=== PATIENT | male | born 1975 | race American Indian/Alaskan Native ===

== ENCOUNTER → 2025-02-16 | Outpatient (CLI) | payer MEDICAID, SELFPAY ==
--- NOTE | 2025-02-16 06:23 | EKG_ITS ---
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
[2025-02-16 07:43] VITALS: BMI 28.1
[2025-02-16 08:11] LABS: Collection Type, Urine Clean Catch; Squamous Epithelial Cell,Urine 0 /hpf (0-5); WBC,Urine 0 /hpf (0-5)
[2025-02-16 09:02] LABS: Anion Gap 9 (7-16); BUN/Creatinine Ratio 13 Ratio (12-20); Blood Urea Nitrogen 10 mg/dL (9-23); Calcium 9.5 mg/dL (8.3-10.6); Carbon Dioxide 27.7 mMol/L (20.0-31.0); Chloride 104 mMol/L (98-107); Creatinine (Component) 0.8 mg/dL (0.6-1.3); Estimated Creatinine Clearance 105.4 mL/min (>60); Glucose 112 mg/dL (74-106); Osmolality,Calculated 281 (275-295); Potassium 4.3 mMol/L (3.4-5.1); Sodium 141 mMol/L (136-145); eGFR > 60 See Note
[2025-02-16 09:05] LABS: Amorphous Crystals,Urine Present (Absent); Bacteria,Urine Rare; Bilirubin,Urine Negative (Negative); Blood,Urine Negative (Negative); Color,Urine Lt-Yellow (Lt Yel-Yel); Glucose, Urine Negative (Negative); Ketones,Urine Negative (Negative); Leukocyte Esterase,Urine Negative (Negative); Nitrite,Urine Negative (Negative); PH,Urine 8.0 (5.0-7.0); Protein,Urine Negative (Neg - Trace); RBC,Urine 1 /hpf (0-3); Specific Gravity,Urine 1.022 (1.001-1.035); Urobilinogen,Urine Negative mg/dL (0.0-1.0)
[2025-02-16 09:21] LABS: Clarity,Urine Hazy (Clear/Hazy)
[2025-02-16 13:56] LABS: Basophils # (Auto) 0.1 Thou/mm3 (0.0-0.2); Basophils % (Auto) 1 % (0-2.5); Eosinophils # (Auto) 0.3 Thou/mm3 (0.0-0.5); Eosinophils % (Auto) 4 % (0-10); Hematocrit 44.1 % (41.0-53.0); Hemoglobin 14.4 g/dL (13.5-16.0); Immature Granulocytes Auto 0.01 Thou/mm3 (0.00-0.00); Lymphocytes # (Auto) 2.6 Thou/mm3 (1.0-4.8); Lymphocytes % (Auto) 36 % (10-50); Mean Corpuscular HGB Conc 32.7 g/dl (31.0-37.0); Mean Corpuscular Hemoglobin 29.5 pg (25.0-35.0); Mean Corpuscular Volume 90 fL (80-100); Monocytes # (Auto) 0.5 Thou/mm3 (0.0-0.8); Monocytes % (Auto) 7 % (0-12); Neutrophils # (Auto) 3.7 Thou/mm3 (1.8-7.7); Neutrophils % (Auto) 52 % (37-80); Nucleated Red Blood Cell # 0.00 Thou/mm3 (0.00-0.00); Nucleated Red Blood Cell % 0 /100 WBC (0); Platelet Count 221 Thou/mm3 (140-440); RDW Standard Deviation 43.7 fL (35.1-43.9); Red Blood Count 4.88 Miln/mm3 (4.50-5.90); White Blood Count 7.2 Thou/mm3 (3.8-10.6)
== END | disposition home or self-care (01) ==
LOC: SLAB 02-24 08:09
PROVIDERS: PCP Family Medicine; Referring Provider Surgery; Visit Provider Surgery
DX: N43.40 Spermatocele of epididymis, unspecified (principal)
CPT/HCPCS: 36415; 80048; 81001; 85025; 93005

== ENCOUNTER 2025-03-25 08:20 | Day surgery (SDC) | payer MEDICAID, SELFPAY ==
[2025-03-23 11:58] VITALS: BMI 29.5
[2025-03-23 12:18] LABS: Collection Type, Urine Clean Catch; Squamous Epithelial Cell,Urine 0 /hpf (0-5); WBC,Urine 0 /hpf (0-5)
[2025-03-23 13:25] LABS: Basophils # (Auto) 0.1 Thou/mm3 (0.0-0.2); Basophils % (Auto) 1 % (0-2.5); Eosinophils # (Auto) 0.3 Thou/mm3 (0.0-0.5); Eosinophils % (Auto) 4 % (0-10); Hematocrit 44.7 % (41.0-53.0); Hemoglobin 14.7 g/dL (13.5-16.0); Immature Granulocytes Auto 0.02 Thou/mm3 (0.00-0.00); Lymphocytes # (Auto) 2.5 Thou/mm3 (1.0-4.8); Lymphocytes % (Auto) 35 % (10-50); Mean Corpuscular HGB Conc 32.9 g/dl (31.0-37.0); Mean Corpuscular Hemoglobin 29.5 pg (25.0-35.0); Mean Corpuscular Volume 90 fL (80-100); Monocytes # (Auto) 0.5 Thou/mm3 (0.0-0.8); Monocytes % (Auto) 7 % (0-12); Neutrophils # (Auto) 3.9 Thou/mm3 (1.8-7.7); Neutrophils % (Auto) 53 % (37-80); Nucleated Red Blood Cell # 0.00 Thou/mm3 (0.00-0.00); Nucleated Red Blood Cell % 0 /100 WBC (0); Platelet Count 235 Thou/mm3 (140-440); RDW Standard Deviation 43.2 fL (35.1-43.9); Red Blood Count 4.98 Miln/mm3 (4.50-5.90); White Blood Count 7.3 Thou/mm3 (3.8-10.6)
[2025-03-23 13:28] LABS: Bilirubin,Urine Negative (Negative); Blood,Urine Negative (Negative); Clarity,Urine Turbid (Clear/Hazy); Color,Urine Yellow (Lt Yel-Yel); Glucose, Urine Negative (Negative); Ketones,Urine Negative (Negative); Leukocyte Esterase,Urine Negative (Negative); Nitrite,Urine Negative (Negative); PH,Urine 8.0 (5.0-7.0); Protein,Urine Negative (Neg - Trace); RBC,Urine 5 /hpf (0-3); Specific Gravity,Urine 1.022 (1.001-1.035); Urobilinogen,Urine Negative mg/dL (0.0-1.0)
[2025-03-23 13:33] LABS: Anion Gap 9 (7-16); BUN/Creatinine Ratio 15 Ratio (12-20); Blood Urea Nitrogen 12 mg/dL (9-23); Calcium 9.8 mg/dL (8.3-10.6); Carbon Dioxide 27.8 mMol/L (20.0-31.0); Chloride 104 mMol/L (98-107); Creatinine (Component) 0.8 mg/dL (0.6-1.3); Estimated Creatinine Clearance 104.0 mL/min (>60); Glucose 85 mg/dL (74-106); Osmolality,Calculated 279 (275-295); Potassium 4.1 mMol/L (3.4-5.1); Sodium 141 mMol/L (136-145); eGFR > 60 See Note
--- NOTE | 2025-03-24 09:26 | ESHP_ITS ---
RE: SVETLANA SUNSHINE : 1975 DATE OF ADMISSION: 03/24/2025 HISTORY OF PRESENT ILLNESS: He is a 50 year old gentleman Macanese speaking with a swollen scrotum. PAST SURGICAL HISTORY: None. SOCIAL HISTORY: He has 3 children. ALLERGIES: NONE KNOWN. PAST MEDICAL HISTORY: No history of diabetes mellitus. No history of hypertension. HOME MEDICATIONS: He takes cholesterol medications. PHYSICAL EXAMINATION: HEENT: Normal. Neck: Soft and supple. Lungs: Clear. Heart: Sounds are normal. Abdomen: Soft. Genitourinary: Phallus is normal. Testes are down in scrotum. There is a left sided scrotal swelling. It is a spermatocele about 3-4 cm in size above the left testis. The right side also he has a smaller spermatocele 1 cm in size. IMPRESSION: Left scrotal swelling, possible left spermatocele. PLAN: Left spermatocelectomy. Planned procedure risks and complications have been discussed with the patient. Patient has understood them and agreed to proceed. DT: 09:17:02 TT: 09:25:00 Ref: [id number] - TID: [id number]
--- NOTE | 2025-03-24 15:05 | SUR.PREOP ---
Pt notified to come in tomorrow at 0830 for surgery.
[2025-03-25] VITALS (10 sets, daily range): BP systolic 122–142; BP diastolic 81–94; PULSE 55–80; RESP 14–20; TEMP 36.2–36.8; O2SAT 98–100; BMI 28.9
--- NOTE | 2025-03-25 12:15 | SUR.PHASEI ---
1215 patient arrived to recovery resting comfortably in [facility], on oxygen 8L via oxy mask, awake and responding to staff, breathing unlabored, vital signs stable, denies pain, dressing intact to scrotal area; sutures, telfa, fluffs, scrotal support, no bleeding noted, report received from Ramon LEE and Javier GUTIERREZ
[2025-03-25] MEDS: KETOROLAC INJ 30 MG/ML VIAL IVP (12:33)
--- NOTE | 2025-03-25 13:25 | SUR.PHASEII ---
1325 Patient meets discharge criteria from recovery, awake and alert, breathing unlabored, vitals signs stable, per patient is pain is tolerable, dressing intact; no bleeding noted, ate a jello and drinking apple juice; denies nausea, assisted with dressing into his clothing by his , discharge instructions given to patient, his and daughter with the assistance of the telephone interpreter for the deaf Rafael ID#[id number], signed discharge instructions. Patient given all his belongings prior to discharge, transported via wheelchair and left in a private vehicle.
--- NOTE | 2025-03-25 21:13 | ESOP_ITS ---
RE: SVETLANA SUNSHINE : 1975 DATE OF OPERATION: 03/25/2025 PREOPERATIVE DIAGNOSES: Left scrotal swelling, left scrotal spermatocele. POSTOPERATIVE DIAGNOSES: Left scrotal swelling, left scrotal spermatocele with prominent appendix of left testis. PROCEDURES PERFORMED: Left spermatocoelectomy and excision and fulguration of the appendix of left testis. ANESTHESIA: General by Mr. Deon Monge BRENDA INDICATION: Patient is a 49-year-old Iraqi-speaking male who was referred to me with history of a left-sided scrotal swelling which is bothering him. Patient has about 3 cm left scrotal spermatocele above the left testis. Patient is now scheduled to have a left spermatocoelectomy. Planned procedure, risks, and complications have been discussed with the patient. Patient understood them and agreed to proceed. DESCRIPTION OF PROCEDURE: After the patient was brought to the operating table under adequate general anesthesia and supine position, parts were prepped and draped in the usual fashion. Left vertical scrotal incision was then made approximately 4 cm long. Skin, subcutaneous tissues were incised, hemostasis was achieved. Tunica vaginalis sac was opened and left testis was exposed. The left testis appeared to be normal except there was a prominent appendix of the left testis which was excised and fulgurated. There was a large spermatocele above the left testis about 4 cm long. This was carefully excised. Hemostasis was achieved. The testis was put back into the hemiscrotum and the scrotal wound was closed in 2 layers using 3-0 chromic catgut sutures. Local anesthetic was injected at the side of the skin. Sterile dressing was then applied. Patient was then transferred to the recovery room in a satisfactory condition having tolerated the entire procedure well. Sponge count and needle count at the end of the procedure was found to be correct. Estimated blood loss was approximately 5 mL. DT: 12:19:10 TT: 21:12:00 Ref: [id number] - TID: [id number]
== END 2025-03-25 13:25 | disposition home or self-care (01) ==
PROVIDERS: PCP Family Medicine; Referring Provider Surgery; Visit Provider Surgery
PROC: (CPT 54840; principal; 2025-03-25 10:30)
DX: N43.41 Spermatocele of epididymis, single (principal); Q55.29 Other congenital malformations of testis and scrotum
CPT/HCPCS: 54840; 36415; 80048; 81001; 85025; A4649; J0131; J0690; J1885; J2250; J2704; J3010; J3490; A9270